=== PATIENT | female | born 1995 | race Caucasian/White ===

== ENCOUNTER 2017-04-10 03:50 | Emergency (ER) | payer MEDICAID ==
[~2017-04-10] VITALS: Ht 152.4 cm; Wt 64.1 kg
[2017-04-10 03:53] VITALS: BP 120/86; TEMP 98
[2017-04-10 04:27] LABS: BASO % 0.3 % (0.0-2.0); EOS # 0.2 (0.0-0.7); EOS % 3.4 % (0-4.0); GRAN # 3.3 (1.4-6.5); GRAN % 48.2 % (42.2-75.2); LYMPH # 2.7 (1.2-3.4); LYMPH % 39.4 % (20.0-51.0); MEAN CELL VOLUME 89 fl (80.0-95.0); MEAN CORPUSCULAR HGB CONC 33 g/dl (33.0-37.0); MEAN PLATELET VOLUME 9.9 fl (7.4-10.4); MONO # 0.6 (0.1-0.6); MONO % 8.6 % (1.7-9.3); PLATELET COUNT 239 K/mm3 (130-400); RED BLOOD COUNT 3.92 M/mm3 (4.10-5.30); REDCELL DISTRIBUTION WIDTH-CV 13.9 % (11.5-14.5); WHITE BLOOD COUNT 6.9 K/mm3 (4.8-10.8)
[2017-04-10 04:28] LABS: HEMATOCRIT 34.9 % (35.0-45.0); HEMOGLOBIN 11.6 g/dl (12.0-15.0); MEAN CORPUSCULAR HEMOGLOBIN 30 pg (26.0-32.0)
[2017-04-10] MEDS ORDERED: NORCO 325 MG-51 TAB PO (04:44)
[2017-04-10 05:04] VITALS: PULSE 77
== END 2017-04-10 05:05 | disposition home or self-care (01) ==
LOC: COL.ER 03:50
PROVIDERS: Family Medicine
DX: O03.6 Delayed or excessive hemorrhage following complete or unspecified spontaneous abortion (principal); Z98.890 Other specified postprocedural states
CPT/HCPCS: J1885; J7030

== ENCOUNTER 2017-07-03 18:39 | Emergency (ER) | payer MEDICAID ==
[~2017-07-03] VITALS: Ht 162.6 cm; Wt 59.1 kg
[~2017-07-03 18:39] MED LIST: NORCO 325 MG-51 TAB PO
[2017-07-03 18:41] VITALS: TEMP 98.6
[2017-07-03] MEDS ORDERED: PREDNISONE10 MG PO (19:04)
[2017-07-03 19:18] VITALS: BP 109/64; PULSE 68
== END 2017-07-03 19:18 | disposition home or self-care (01) ==
LOC: COL.ER 18:39
DX: L40.9 Psoriasis, unspecified (principal); M17.0 Bilateral primary osteoarthritis of knee; M19.072 Primary osteoarthritis, left ankle and foot; M19.071 Primary osteoarthritis, right ankle and foot
CPT/HCPCS: J7512